=== PATIENT | male | born 2000 | race Hispanic/Latino ===

== ENCOUNTER 2020-10-28 09:45 | Day surgery (SDC) | payer BC ==
[2020-10-28] MEDS ORDERED: ONDANSETRON 4 MG/2 ML INJ IV PRN (11:24)
[2020-10-28] MEDS ORDERED: HYDROmorphone 1 MG/1 ML INJ IV PRN (11:24)
--- NOTE | 2020-10-28 11:25 | Anesthesia Day of Surgery ---
Anesthesia Day of Surgery - Day of Surgery Patient Examined: Yes Patient H&P Reviewed: Yes Patient is NPO: Yes
[2020-10-28] MEDS ORDERED: LACTATED RINGERS 1,000 ML IV SCH (11:30)
--- NOTE | 2020-10-28 11:30 | Anesthesia Consultation ---
Anesthesia Consult and Med Hx Date of service: 10/28/20 - Airway Anesthetic Teeth Evaluation: Good ROM Head & Neck: Adequate Mental/Hyoid Distance: Adequate Mallampati Class: Class IV Intubation Access Assessment: Possibly Difficult - Pre-Operative Health Status ASA Pre-Surgery Classification: ASA3 Proposed Anesthetic Plan: General - Pulmonary Hx Respiratory Symptoms: No (Good PFTs per father; active +2FS) - Gastrointestinal Hx Gastroesophageal Reflux Disease: No - Endocrine Hx Renal Disease: Yes (Stones) Hx Liver Disease: Yes (Increased LFTs due to trikefta) - Other Systems Hx Obesity: Yes
[2020-10-28] MEDS ORDERED: ceFAZolin/STERILE WATER 2 GM/20 ML SYRINGE IV NR (12:00)
[2020-10-28] MEDS: MIDAZOLAM 2 MG/2 ML INJ IV NR ×2 (12:07→14:35)
[2020-10-28] MEDS: HYDROmorphone 1 MG/1 ML INJ IV PRN ×2 (12:08→17:15)
[2020-10-28] MEDS ORDERED: ONDANSETRON 4 MG/2 ML INJ ONE (14:00)
[2020-10-28] MEDS ORDERED: propofoL 200 MG/20 ML VIAL IV ONE (14:41)
[2020-10-28] MEDS ORDERED: fentaNYL 100 MCG/2 ML INJ ONE (14:41)
[2020-10-28] MEDS ORDERED: LIDOCAINE 2% UROJECT 10 ML JELLY ONE (15:22)
[2020-10-28] MEDS ORDERED: IOHEXOL 300 MG/ML 50ML IV ONE (15:26)
[2020-10-28] MEDS ORDERED: WATER FOR IRRIG STERILE 2000 ML IR ONE (15:26)
--- NOTE | 2020-10-28 15:50 | Post Operative Note ---
Date of procedure: 10/28/20 Pre-op diagnosis: bilat stones Post-op diagnosis: same Findings: as above Procedure: cysto stents r ureteroscopy Anesthesia: GETA Surgeon: HALLIE CUMMINGS Estimated blood loss: none Pathology: none Condition: stable Disposition: PACU
--- NOTE | 2020-10-28 15:51 | Discharge Summary ---
Short Stay Discharge Plan Activity: other (no straining) Weight Bearing Status: Full Weight Bearing Diet: regular, low fat Special Instructions: other (inc fluuids ) Follow up with: KEMAL ISAAC [Primary Care Provider] - 7 Days HALLIE CUMMINGS MD [Staff Physician] - 7 Days
--- NOTE | 2020-10-28 16:09 | Fluoroscopy Report ---
FLUOROSCOPY RETROGRADE UROGRAPHY HISTORY: Stone manipulation and stent placement, left ureteral stone FINDINGS: Fluoroscopy was provided by radiology during retrograde urography by the urologist. The rig ht pyelogram is normal. Filling defect in the proximal left ureter is identified consistent with a st one. Subsequent images demonstrate bilateral ureteral stent placement which are in good position with good drainage of both collecting systems on the final image. IMPRESSION: Bilateral ureteral stent placement as described. Fluoroscopy time: 83 seconds Fluoroscopic images: 6 Signer Name: Aelx Andrews Jr, MD Signed: 10/28/2020 4:04 PM Workstation Name: [id number]
[2020-10-28 17:53] VITALS: BP 140/83
--- NOTE | 2020-10-28 19:50 | Post Anesthesia Evaluation ---
- Post Anesthesia Evaluation Patient Participated: Yes Airway Patent: Yes Stable Respiratory Function: Yes Nausea/Vomiting: No Temp > 96.8F: Yes Pain Manageable: Yes Adequeate Hydration: No Anesthesia Complications: No Block Receding Appropriately: Not Applicable Patient on Ventilator: No
--- NOTE | 2020-10-28 20:34 | Operative Report ---
DATE OF SURGERY: 10/28/2020 PREOPERATIVE DIAGNOSIS: Bilateral upper ureteral stones. POSTOPERATIVE DIAGNOSIS: Bilateral upper ureteral stones. PROCEDURES: Cystoscopy, bilateral retrogrades, left attempted stone manipulation, bilateral stents, attempted right ureteroscopy. SURGEON: Dr. Floyd. ANESTHESIA: General. 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 He presented with intermittent pain. Stone was bigger on the left than the right. The plan was to try to get to laser one of the stones. He now presents for treatment. DESCRIPTION OF PROCEDURE: The patient was brought to the operating room and placed on the operating table. Following induction of anesthesia, placed in lithotomy position, prepped and draped in usual sterile fashion. There was blood from the left orifice. Retrograde showed the stone at the UPJ. It was quite difficult initially to get the wire past the stone. With some irrigation, we were able to make a space and get the wire in the upper calyx. The stone did not move. A 6-Argentine double J, after we dilated the ureter with an open-ended 5-Argentine or 6-Argentine, coiled in the upper calyx. We did not try to ureteroscope the left side. On the right side, we placed a wire, went easily, and we placed a second wire. When we were placing the second wire, the open-ended double lumen catheter met some resistance at the intramural ureter just at the level of the bladder hiatus. We used the ureteral inner sheath access dilator and it met some resistance. We did a flexible ureteroscopy; and without balloon dilatation, we were not going to get above that area. Because of his age and because of its possible amenable to further treatment like lithotripsy, we placed a 4.5-Argentine double J in the right as a 6-Argentine in the left. He tolerated the procedure well and brought to recovery room in stable condition. No complications. TID: [id number] RECEIPT: [id number] SRIDHAR/CHAD/MIRANDA
== END 2020-10-28 18:45 | disposition home or self-care (01) ==
LOC: OR 09:45
PROVIDERS: ATTEND Urology
DX: N20.1 Calculus of ureter (principal); E66.9 Obesity, unspecified; Z88.8 Allergy status to other drugs, medicaments and biological substances; Z79.899 Other long term (current) drug therapy; Z90.49 Acquired absence of other specified parts of digestive tract; Z98.890 Other specified postprocedural states; Z68.34 Body mass index [BMI] 34.0-34.9, adult
CPT/HCPCS: 52330; 52332; 52351; 74420; A4217; C1726; C1758; C1769; C2617; J0690; J1170; J2250; J2405; J2704; J3010; J7120; Q9967

== ENCOUNTER 2020-11-25 09:21 | Day surgery (SDC) | payer BC ==
[~2020-11-25 09:21] MED LIST: IOHEXOL 300 MG/ML 50ML IV ONE; WATER FOR IRRIG STERILE 1,500 ML BOTTLE IR ONE; WATER FOR IRRIG STERILE 2000 ML IR ONE
[2020-11-25] MEDS ORDERED: LACTATED RINGERS 1,000 ML IV SCH (10:00)
[2020-11-25] MEDS ORDERED: ceFAZolin/STERILE WATER 2 GM/20 ML SYRINGE IV NR (10:00)
--- NOTE | 2020-11-25 10:41 | Anesthesia Consultation ---
Anesthesia Consult and Med Hx Date of service: 11/25/20 - Airway Anesthetic Teeth Evaluation: Good ROM Head & Neck: Adequate Mental/Hyoid Distance: Adequate Mallampati Class: Class I Intubation Access Assessment: Good - Pre-Operative Health Status ASA Pre-Surgery Classification: ASA2 Proposed Anesthetic Plan: General - Pulmonary Hx Smoking: No Hx Respiratory Symptoms: No (Good PFTs per father; active +2FS) Hx Sleep Apnea: No ([facility] PRE SCREEN LOW RISK) - Cardiovascular System Hx Hypertension: No - Central Nervous System Hx Psychiatric Problems: No - Gastrointestinal Hx Gastroesophageal Reflux Disease: No - Endocrine Hx Renal Disease: Yes (Stones) Hx Liver Disease: Yes (Increased LFTs due to trikefta) - Other Systems Hx Cancer: No Hx Obesity: Yes
--- NOTE | 2020-11-25 10:42 | Anesthesia Day of Surgery ---
Anesthesia Day of Surgery - Day of Surgery Patient Examined: Yes Patient H&P Reviewed: Yes Patient is NPO: Yes
[2020-11-25] MEDS ORDERED: MIDAZOLAM 2 MG/2 ML INJ IV SCH (11:00)
[2020-11-25] MEDS ORDERED: LIDOCAINE PF 100 MG/5 ML (CARDIAC SYRINGE) IV ONE (11:54)
[2020-11-25] MEDS ORDERED: propofoL 200 MG/20 ML VIAL IV ONE (11:55)
[2020-11-25] MEDS ORDERED: KETAMINE/STERILE WATER 50 MG/ML SYRINGE ONE (11:57)
[2020-11-25] MEDS ORDERED: IOHEXOL 300 MG/ML 50ML IV ONE (12:15)
[2020-11-25] MEDS ORDERED: WATER FOR IRRIG STERILE 1,500 ML BOTTLE IR ONE (12:15)
[2020-11-25] MEDS ORDERED: WATER FOR IRRIG STERILE 2000 ML IR ONE (12:15)
[2020-11-25] MEDS ORDERED: KETOROLAC 30 MG/1 ML INJ ONE (13:06)
[2020-11-25] MEDS ORDERED: ONDANSETRON 4 MG/2 ML INJ ONE (13:06)
[2020-11-25] MEDS ORDERED: dexAMETHasone 20 MG/5 ML VIAL ONE (13:06)
--- NOTE | 2020-11-25 14:00 | Post Operative Note ---
Date of procedure: 11/25/20 Pre-op diagnosis: bilat stones Post-op diagnosis: same Findings: same Procedure: cysto ureteroscopy laser Anesthesia: MARYLOU Surgeon: HALLIE CUMMINGS Estimated blood loss: none Pathology: none Condition: stable Disposition: PACU
--- NOTE | 2020-11-25 14:01 | Discharge Summary ---
Short Stay Discharge Plan Activity: other (no straining ) Weight Bearing Status: Full Weight Bearing Diet: regular Special Instructions: other (inc fluids ) Durable Medical Equipment Needed Upon Discharge: other (j stent ) Follow up with: KEMAL ISAAC [Primary Care Provider] - 7 Days HALLIE CUMMINGS MD [Staff Physician] - 7 Days
--- NOTE | 2020-11-25 15:10 | Fluoroscopy Report ---
6 fluoroscopic images submitted Indication: Intraoperative localization Impression: 6 images of the abdomen were submitted for documentation purposes with radiology involve ment. Approximately 8 mL of Omnipaque 300 was utilized for right sided double-J ureteral stent excha nge and left-sided stent removal. Please refer to the operative note for complete details. Fluoroscopic time: 1 minute and 8 seconds Signer Name: Sukhi Kent MD Signed: 11/25/2020 3:05 PM Workstation Name: [id number]
--- NOTE | 2020-11-25 16:21 | Operative Report ---
DATE OF SURGERY: 11/25/2020 PREOPERATIVE DIAGNOSES: Bilateral ureteral stones, previous left lithotripsy. POSTOPERATIVE DIAGNOSES: Bilateral ureteral stones, previous left lithotripsy. PROCEDURES: Right, cystoscopy, retrograde, right ureteroscopy, laser of stone, removal of left double-J stent, stent exchange on the right. SURGEON: Dr. Floyd. ANESTHESIA: General. FINDINGS: This is a 20-year-old with cystic fibrosis. He had large obstruction bilaterally. He had right UPJ and left UPJ stones. He now presents for treatment of the right, which is not well seen on x-ray. DESCRIPTION OF PROCEDURE: The patient was brought to the operating room and placed on the operating table. Following induction of anesthesia, placed in the lithotomy position, prepped and draped in usual sterile fashion. Cystourethroscopy showed both stents. The left stent was removed. The right stent was partially removed the wire placed in the right kidney. A second wire placed. Ureteroscopy up to the UPJ showed the stone adherent to the UPJ. We began lasering it and broke it up into about 5 or 6 pieces mostly in the kidney, once we got in the kidney. The patient tolerated the procedure well. A double J was replaced. First, we placed a 24, it looked a little short, so we placed a 26, 6-Afghan. The patient tolerated the procedure well. We left the string. Brought to recovery in stable condition. TID: [id number] RECEIPT: [id number] SRIDHAR/MELLY
--- NOTE | 2020-11-25 16:32 | Post Anesthesia Evaluation ---
- Post Anesthesia Evaluation Patient Participated: Yes Airway Patent: Yes Stable Respiratory Function: Yes Nausea/Vomiting: No Temp > 96.8F: Yes Pain Manageable: Yes Adequeate Hydration: Yes Anesthesia Complications: No Block Receding Appropriately: Not Applicable Patient on Ventilator: No
[2020-11-25 16:33] VITALS: BP 127/81
== END 2020-11-25 15:45 | disposition home or self-care (01) ==
LOC: OR 09:21
PROVIDERS: ATTEND Urology
DX: N20.0 Calculus of kidney (principal); Z71.3 Dietary counseling and surveillance; I10 Essential (primary) hypertension; E66.9 Obesity, unspecified; Z79.899 Other long term (current) drug therapy; Z98.890 Other specified postprocedural states
CPT/HCPCS: 52356; 74420; A4217; C1769; C2617; J0690; J1100; J1885; J2001; J2250; J2405; J2704; J3490; J7120; Q9967